=== PATIENT | female | born 1955 | race Caucasian/White ===

== ENCOUNTER 2016-07-21 21:32 | Emergency (ER) | payer MEDICAID ==
[2016-07-21 21:39] VITALS: RESP 18; TEMP 98.4
--- NOTE | 2016-07-21 23:26 | EDPHY ---
H & P Stated Complaint: BILAT LEG PAIN AND L SHOULDER, NECK PAIN SHOPPING CART GOT STUCK IN A GR Time Seen by Provider: 07/21/16 22:16 HPI/ROS: HPI The patient presents with right jesus pain after an injury. She was walking in the parking lot of a grocery store and her cart got stuck in a great in the sidewalk and she ran into it she thinks. The cart hit her right jesus and she has had progressive achy and throbbing pain which is moderate in severity. She is able to walk without difficulty. She denies any weakness. She has left shoulder aching as well.. REVIEW OF SYSTEMS Constitutional: No fever, no chills. Eyes: No discharge. ENT: No sore throat. Cardiovascular: No chest pain, no palpitations. Respiratory: No cough, no shortness of breath. Gastrointestinal: No abdominal pain, no vomiting. Genitourinary: No hematuria. Musculoskeletal: No back pain. Skin: No rashes. Neurological: No headache. PMHx: Recent traumatic brain injury, hypothyroid, von Willebrand's disease Soc Hx: Housed in [facility] PHYSICAL General Appearance: Alert, no distress Eyes: Pupils equal and round no pallor or injection ENT, Mouth: Mucous membranes moist Respiratory: There are no retractions, lungs are clear to auscultation Cardiovascular: Regular rate and rhythm Gastrointestinal: Abdomen is soft and non-tender, no masses, bowel sounds normal Neurological: A&O, moves all extremities Skin: Warm and dry, no rashes Musculoskeletal: Neck is supple non tender Extremities: Ecchymoses of right anterior leg, full range of motion of knee on the same side, sensation intact to light touch throughout, 2+ DP pulses Psychiatric: Patient is oriented X 3, there is no agitation Source: Patient Exam Limitations: No limitations - Personal History Current Tetanus/Diphtheria Vaccine: Unsure Current Tetanus Diphtheria and Acellular Pertussis (TDAP): Unsure - Medical/Surgical History Hx Asthma: No Hx Chronic Respiratory Disease: No Hx Diabetes: No Hx Cardiac Disease: No Hx Renal Disease: No Hx Cirrhosis: No Hx Alcoholism: No Hx HIV/AIDS: No Hx Splenectomy or Spleen Trauma: No Other PMH: hypothyroid, vonwildabrands, TBI - Social History Smoking Status: Never smoked Constitutional: Initial Vital Signs Temperature (C) 36.9 C 07/21/16 21:34 Heart Rate 91 07/21/16 21:34 Respiratory Rate 18 07/21/16 21:34 Blood Pressure 169/95 H 07/21/16 21:34 O2 Sat (%) 93 07/21/16 21:34 O2 Delivery Mode Room Air Allergies/Adverse Reactions: Penicillins Allergy (Intermediate, Verified 07/21/16 21:39) Edema of Extremities Sulfa (Sulfonamide Antibiotics) Allergy (Intermediate, Verified 07/21/16 21:39) Itching Home Medications: Medication Instructions Recorded Albuterol [Proventil Inhaler HFA 1 - 2 puffs IH Q4H 07/21/16 (*)] Olopatadine HCl [Pataday] 2.5 ml OP 07/21/16 Thyroid [[place] Thyroid 60 MG (*)] 60 mg PO DAILY10 07/21/16 Medical Decision Making - Diagnostics Imaging Results: Imaging Impressions Tibia/Fibula X-Ray 07/21/16 22:32 Impression: Negative for fracture. Imaging: I viewed and interpreted images myself Differential Diagnosis: This is a 60-year-old female with history of TBI who presents after an injury in the grocery store parking lot, hitting herself with her shopping cart. Her main injury is right jesus pain and she has ecchymoses in the region. She has good range of motion is weight-bearing. She does have a history of von Willebrand's disease. X-ray was performed and was unremarkable. I have recommended rest, ice, elevation for her. She will be discharged from the emergency room. Departure - Departure Disposition: Home, Routine, Self-Care Clinical Impression: Fall involving shopping cart as cause of accidental injury, Contusion of leg, right Condition: Good Instructions: Contusion in Adults (ED) Additional Instructions: Please make sure to use plenty of ice on your leg. You can elevate it as well to help with pain. You can take Tylenol to help with pain. Referrals: [facility] [Other] - As per Instructions
[2016-07-21 23:51] VITALS: BP 150/76; PULSE 81; O2SAT 96
== END 2016-07-21 23:50 | disposition home or self-care (01) ==
DX: S80.11XA Contusion of right lower leg, initial encounter (principal); W18.09XA Striking against other object with subsequent fall, initial encounter; Y92.481 Parking lot as the place of occurrence of the external cause; Y99.8 Other external cause status; Y93.01 Activity, walking, marching and hiking

== ENCOUNTER 2016-07-29 13:53 | Emergency (ER) | payer MEDICAID ==
--- NOTE | 2016-07-29 15:04 | EDPHY ---
H & P Stated Complaint: RIGHT LEG PAIN AND BRUISING Time Seen by Provider: 07/29/16 14:50 HPI/ROS: CHIEF COMPLAINT: right leg pain and bruising HISTORY OF PRESENT ILLNESS: The patient is a 60-year-old female with a history of traumatic brain injury who comes to the emergency department complaining of pain around a bruise centered in her right jesus. She was seen here just over a week ago after hitting her leg on a shopping cart. She has a history of von Willebrand's disease. She had x-rays performed at that time which were negative. She has moderate bruising and swelling in the region. She saw her primary at [facility] 4 days ago and was complaining of some paresthesias distally to the bruise. 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 Her primary felt that some of the swelling might be exacerbating her neuropathy. She states that those symptoms have continued until today and that she was worried about a DVT. She came here to be evaluated for DVT. She states that she also hit her left leg on the shopping cart and that her bones now crack on both sides when she moves them. She also states that she hurt her left trapezius muscle when she ran into the shopping cart. She is not very concerned about this however and states that it seems to be healing slowly. She does not have any paresthesias numbness or weakness. No bowel or bladder abnormalities. No fevers. REVIEW OF SYSTEMS: Constitutional: denies: chills, fever, recent illness, recent injury EENTM: denies: blurred vision, double vision, nose congestion Respiratory: denies: cough, shortness of breath Cardiac: denies: chest pain, irregular heart rate, lightheadedness, palpitations Gastrointestinal/Abdominal: denies: abdominal pain, diarrhea, nausea, vomiting, blood streaked stools Genitourinary: denies: dysuria, frequency, hematuria, pain Musculoskeletal: See HPI Skin: denies: lesions, rash, jaundice, bruising Neurological: denies: headache, numbness, paresthesia, tingling, dizziness, weakness Hematologic/Lymphatic: denies: blood clots, easy bleeding, easy bruising Immunologic/allergic: denies: HIV/AIDS, transplant EXAM: GENERAL: Well-appearing, well-nourished and in no acute distress. HEAD: Atraumatic, normocephalic. EYES: Pupils equal round and reactive to light, extraocular movements intact, sclera anicteric, conjunctiva are normal. ENT: TMs normal, nares patent, oropharynx clear without exudates. Moist mucous membranes. NECK: Normal range of motion, supple without lymphadenopathy or JVD. LUNGS: Breath sounds clear to auscultation bilaterally and equal. No wheezes rales or rhonchi. HEART: Regular rate and rhythm without murmurs, rubs or gallops. ABDOMEN: Soft, nontender, normoactive bowel sounds. No guarding, no rebound. No masses appreciated. BACK: No CVA tenderness, no spinal tenderness, step-offs or deformities EXTREMITIES: Contusion to right middle jesus. No significant swelling. Normal range of motion and strength. Normal ambulation. NEUROLOGICAL: Cranial nerves II through XII grossly intact. Normal speech, normal gait. 5/5 strength, normal movement in all extremities, normal sensation , normal reflexes PSYCH: Normal mood, normal affect. SKIN: Warm, dry, normal turgor, no visible rashes or lesions. Source: Patient Exam Limitations: No limitations - Personal History Current Tetanus/Diphtheria Vaccine: Yes Current Tetanus Diphtheria and Acellular Pertussis (TDAP): Yes - Medical/Surgical History Hx Asthma: No Hx Chronic Respiratory Disease: No Hx Diabetes: No Hx Cardiac Disease: No Hx Renal Disease: No Hx Cirrhosis: No Hx Alcoholism: No Hx HIV/AIDS: No Hx Splenectomy or Spleen Trauma: No Other PMH: PMH:hypothyroid, vonwildabrands, TBI, ptsd. PSH:overian cyst removan , dental - Family History Significant Family History: No pertinent family hx - Social History Smoking Status: Never smoked Alcohol Use: Sober Drug Use: None Constitutional: Initial Vital Signs Temperature (C) 36.5 C 07/29/16 14:10 Heart Rate 84 07/29/16 14:10 Respiratory Rate 16 07/29/16 14:10 Blood Pressure 125/78 H 07/29/16 14:10 O2 Sat (%) 97 07/29/16 14:10 O2 Delivery Mode Room Air Allergies/Adverse Reactions: Penicillins Allergy (Intermediate, Verified 07/21/16 21:39) Edema of Extremities Sulfa (Sulfonamide Antibiotics) Allergy (Intermediate, Verified 07/21/16 21:39) Itching Home Medications: Medication Instructions Recorded Albuterol [Proventil Inhaler HFA 1 - 2 puffs IH Q4H 07/21/16 (*)] Olopatadine HCl [Pataday] 2.5 ml OP 07/21/16 Thyroid [[place] Thyroid 60 MG (*)] 60 mg PO DAILY10 07/21/16 Medical Decision Making - Diagnostics Imaging Results: Imaging Impressions Extremity Venous Study 07/29/16 15:01 Impression: No evidence of deep vein thrombosis in the right lower extremity. Results called and discussed with SIXTO HANKINS M.D. on 07/29/2016 at 16:14 Imaging: Discussed imaging studies w/ call person Radiologist ED Course/Re-evaluation: The patient's ultrasound results are reassuring. She is eager to go home. She declines further workup testing. She will follow up with her primary care physician Differential Diagnosis: Partial list of the Differential diagnosis considered include but were not limited to; contusion, DVT, peripheral neuropathy and although unlikely based on the history and physical exam, I also considered sciatica, radiculopathy infection. I discussed these differential diagnoses and the plan with the patient as well as the usual and expected course. The patient understands that the diagnosis is provisional and that in medicine we are not always correct and that further workup is often warranted. Usual and customary warnings were given. All of the patient's questions were answered. The patient was instructed to return to the emergency department should the symptoms at all worsen or return, otherwise to followup with the physician as we discussed. Departure - Departure Disposition: Home, Routine, Self-Care Clinical Impression: Hematoma Condition: Fair Instructions: Hematoma (ED) Additional Instructions: follow up with PCP as needed. Referrals: NAME,UNKNOWN [Other] - As per Instructions
[2016-07-29 18:02] VITALS: BP 125/83; PULSE 79; RESP 18; TEMP 98.4; O2SAT 96
== END 2016-07-29 18:11 | disposition home or self-care (01) ==
DX: S80.11XA Contusion of right lower leg, initial encounter (principal); W22.8XXA Striking against or struck by other objects, initial encounter

== ENCOUNTER 2017-10-25 00:54 | Emergency (ER) | payer MEDICAID ==
[2017-10-25 01:01] VITALS: BP 184/101
[2017-10-25] MEDS ORDERED: LIDOCAINE 4%/MENTHOL 1% PATCH TD ONE (01:57)
[2017-10-25] MEDS ORDERED: ACYCLOVIR 400 MG PREPACK#4 BTL TAKEHOME ONE (01:57)
[2017-10-25] MEDS ORDERED: ACYCLOVIR 400 MG TAB PO ONE (01:57)
--- NOTE | 2017-10-25 01:58 | EDPHY ---
H & P Stated Complaint: Rash x 1wk, generalized bdy aches, anxious Time Seen by Provider: 10/25/17 01:27 HPI/ROS: HPI The patient presents with rash and burning sensation of her left upper abdomen. The patient is concerned that there are bugs in her house after sustaining multiple bug bites over the last 1 week throughout her arms and legs. She called an storage battery inspector who came to her house and found that she had spiders but no signs of bed bugs. She has been very vigilant about these bug bites. Then over the last several days she has developed a burning sensation of her left abdomen which radiates toward her back and has noticed that she has several lesions there that looked like red bumps. She has not any fevers or chills, nausea or vomiting.. REVIEW OF SYSTEMS Constitutional: No fever, no chills. Eyes: No discharge. ENT: No sore throat. Cardiovascular: No chest pain, no palpitations. Respiratory: No cough, no shortness of breath. Gastrointestinal: No abdominal pain, no vomiting. Genitourinary: No hematuria. Musculoskeletal: No back pain. Skin: See HPI Neurological: No headache. PMHx: Hypothyroidism, von Willebrand's disease, fibromyalgia, history of shingles Soc Hx: Housed PHYSICAL General Appearance: Alert, no distress Eyes: Pupils equal and round no pallor or injection ENT, Mouth: Mucous membranes moist Respiratory: There are no retractions, lungs are clear to auscultation Cardiovascular: Regular rate and rhythm Gastrointestinal: Abdomen is soft and non-tender, no masses, bowel sounds normal Neurological: A&O, moves all extremities Skin: Warm and dry, several erythematous papules throughout her abdomen and arms Musculoskeletal: Neck is supple non tender Extremities: symmetrical, full range of motion Psychiatric: Patient is oriented X 3, there is no agitation Source: Patient Exam Limitations: No limitations - Personal History Current Tetanus Diphtheria and Acellular Pertussis (TDAP): No - Medical/Surgical History Hx Asthma: No Hx Chronic Respiratory Disease: No Hx Diabetes: No Hx Cardiac Disease: No Hx Renal Disease: No Hx Cirrhosis: No Hx Alcoholism: No Hx HIV/AIDS: No Hx Splenectomy or Spleen Trauma: No Other PMH: PMH:hypothyroid, vonwildabrands, TBI, ptsd. PSH:overian cyst removan , dental - Social History Smoking Status: Never smoked Constitutional: Initial Vital Signs Temperature (C) 36.5 C 10/25/17 00:56 Heart Rate 83 10/25/17 00:56 Respiratory Rate 18 10/25/17 00:56 Blood Pressure 184/101 H 10/25/17 00:56 O2 Sat (%) 97 10/25/17 00:56 O2 Delivery Mode Room Air Allergies/Adverse Reactions: Penicillins Allergy (Intermediate, Verified 10/25/17 00:55) Edema of Extremities Sulfa (Sulfonamide Antibiotics) Allergy (Intermediate, Verified 10/25/17 00:55) Itching Home Medications: Medication Instructions Recorded Albuterol [Proventil Inhaler HFA 1 - 2 puffs IH Q4H 07/21/16 (*)] Olopatadine HCl [Pataday] 2.5 ml OP 07/21/16 Thyroid [[place] Thyroid 60 MG (*)] 60 mg PO DAILY10 07/21/16 Acyclovir 800 mg PO 5XD #35 tab 10/25/17 Medical Decision Making Differential Diagnosis: 62-year-old female presents with multiple bug bites over the last 1 week, now with left-sided burning sensation throughout her abdomen and back. On exam, well-appearing, does have scattered erythematous papules throughout her torso and arms which are quite mild. I wonder if this burning sensation is early varicella zoster. Given little downside to treating with azithromycin I will start her on this here. I will also try a lidocaine patch for her symptoms. I do not suspect scabies or bedbugs. She will be discharged from the emergency department in good condition. She is happy with this plan and will [facility] if she is worse in any way - Data Points Medications Given: Discontinued Medications Acyclovir (Acyclovir) 800 mg PO EDNOW ONE Stop: 10/25/17 01:58 Last Admin: 10/25/17 02:52 Dose: 800 mg Acyclovir (Zovirax 400 Mg Prepack #4) 1 btl TAKEHOME EDNOW ONE Stop: 10/25/17 01:58 Last Admin: 10/25/17 02:52 Dose: 1 btl Miscellaneous Medication (Icy Hot Lidocaine/Menthol 4%/1% Patch) 1 patch TD EDNOW ONE Stop: 10/25/17 01:58 Last Admin: 10/25/17 02:53 Dose: 1 patch Departure - Departure Disposition: Home, Routine, Self-Care Clinical Impression: Rash Condition: Good Instructions: Shingles (ED) Additional Instructions: I recommend that you take the acyclovir for possible shingles. You [facility] 2 days. Referrals: [facility],. [Clinic] - As per Instructions Prescriptions: Acyclovir 800 mg PO 5XD #35 tab
[2017-10-25] MEDS ORDERED: PATCH REMOVAL 1 EA PATCH TD SCH (21:00)
== END 2017-10-25 02:59 | disposition home or self-care (01) ==
DX: R21 Rash and other nonspecific skin eruption (principal); R20.8 Other disturbances of skin sensation; Z86.19 Personal history of other infectious and parasitic diseases

== ENCOUNTER 2018-05-08 10:35 | Emergency (ER) | payer MEDICAID ==
[2018-05-08 10:43] VITALS: BP 138/80
--- NOTE | 2018-05-09 07:35 | EDPHY ---
H & P Stated Complaint: dx flu continued resp prob Time Seen by Provider: 05/08/18 10:50 HPI/ROS: CHIEF COMPLAINT: Diarrhea, vomiting, fever, congestion HISTORY OF PRESENT ILLNESS: The patient is a diabetic female presents the emergency department with fever, cough, vomiting and diarrhea. The patient's symptoms have increased over the past 2 days. The patient denies any recent antibiotic use. She denies associated dysuria. She reports that her blood sugars have been well controlled. The patient reports that her symptoms are moderate in nature. She has associated fatigue and weakness. She denies any focal numbness or weakness. She denies any bowel or bladder dysfunction. She denies rash or arthralgias. REVIEW OF SYSTEMS: A comprehensive 10 point review of systems is otherwise negative aside from elements mentioned in the history of present illness. Source: Patient Exam Limitations: No limitations - Personal History Current Tetanus Diphtheria and Acellular Pertussis (TDAP): No - Medical/Surgical History Hx Asthma: No Hx Chronic Respiratory Disease: No Hx Diabetes: No Hx Cardiac Disease: No Hx Renal Disease: No Hx Cirrhosis: No Hx Alcoholism: No Hx HIV/AIDS: No Hx Splenectomy or Spleen Trauma: No Other PMH: PMH:hypothyroid, vonwildabrands, TBI, ptsd. PSH:overian cyst removan , dental - Social History Smoking Status: Never smoked - Physical Exam Exam: General Appearance: Elderly female, appears fatigued, uncomfortable Eyes: Pupils equal and round no pallor or injection ENT, Mouth: Dry mucous membranes Respiratory: Rhonchorous breath sounds Cardiovascular: Regular rate and rhythm Gastrointestinal: Abdomen is soft and nontender, no masses, bowel sounds normal Neurological: 5/5 strength noted all 4 extremities Skin: Warm and dry, no rashes Musculoskeletal: Neck is supple nontender Extremities: symmetrical, full range of motion Psychiatric: Patient is oriented X 3, there is no agitation Constitutional: Initial Vital Signs Temperature (C) 37.3 C 05/08/18 10:39 Heart Rate 97 05/08/18 10:39 Respiratory Rate 17 05/08/18 10:39 Blood Pressure 138/80 H 05/08/18 10:39 O2 Sat (%) 94 05/08/18 10:39 O2 Delivery Mode Room Air Allergies/Adverse Reactions: Penicillins Allergy (Intermediate, Verified 05/08/18 10:37) Edema of Extremities Sulfa (Sulfonamide Antibiotics) Allergy (Intermediate, Verified 05/08/18 10:37) Itching ciprofloxacin [From Cipro] Allergy (Verified 05/08/18 10:38) Home Medications: Medication Instructions Recorded Albuterol [Proventil Inhaler HFA 1 - 2 puffs IH Q4H 07/21/16 (*)] Olopatadine HCl [Pataday] 2.5 ml OP 07/21/16 Thyroid [[place] Thyroid 60 MG (*)] 60 mg PO DAILY10 07/21/16 Acyclovir 800 mg PO 5XD #35 tab 10/25/17 Advair 100/50 (*) 05/08/18 Tamiflu 05/08/18 Medical Decision Making - Diagnostics Imaging Results: Chest x-ray PA lateral: Images reviewed by myself, atelectasis noted, negative for focal infiltrate per my interpretation. ED Course/Re-evaluation: Database reviewed in the emergency department: Chest x-ray: Negative for focal infiltrate Influenza assay: Positive for flu A Metabolic panel: Normal ED course: Patient had an IV established. She received IV Zofran, L of normal saline and pain medications. Patient is slightly tachycardic and having active nausea, vomiting and diarrhea. She is dehydrated. The patient will require admission to the hospital in the setting of her acute influenza infection. She has no evidence of diabetic ketoacidosis. Consultation is made with the hospitalist service. The patient will be admitted this evening by Dr. Galaviz Differential Diagnosis: Differential diagnosis considered includes asthma, bronchitis, pneumonia, gastroenteritis, influenza, renal failure Departure - Departure Disposition: [facility] Inpatient Acute Clinical Impression: Acute bronchitis, Influenza, Dehydration Condition: Good Referrals: Megan Rios NP [Primary Care Provider] - As per Instructions
== END 2018-05-08 12:30 | disposition still patient (30) ==
DX: J10.1 Influenza due to other identified influenza virus with other respiratory manifestations (principal); J20.9 Acute bronchitis, unspecified; R11.2 Nausea with vomiting, unspecified; R19.7 Diarrhea, unspecified; E86.0 Dehydration; E11.9 Type 2 diabetes mellitus without complications; Z87.820 Personal history of traumatic brain injury; Z88.2 Allergy status to sulfonamides; Z88.0 Allergy status to penicillin

== ENCOUNTER 2018-05-16 18:43 | Emergency (ER) | payer MEDICAID ==
[2018-05-16] MEDS ORDERED: NS 1,000 ML IV ONE (19:04)
[2018-05-16] MEDS ORDERED: IPRATROPIUM/ALBUTEROL 3 ML DEYVIAL IH ONE (19:05)
--- NOTE | 2018-05-16 19:15 | EDPHY ---
H & P Stated Complaint: Flu, Cough, SOB Time Seen by Provider: 05/16/18 19:05 HPI/ROS: HPI CHIEF COMPLAINT: Shortness of breath, wheezing, worsening cough. HISTORY OF PRESENT ILLNESS: This is a 62-year-old female, she presents to the emergency room with cough, shortness of breath and wheezing. Patient states she has been sick for 2 weeks. She states she has had worsening cough, shortness of breath and wheezing. She denies any chest pain. She is concerned about pneumonia. Denies fever. She states she has a bronchitic cough very vigorous. No hemoptysis. Denies chest pain or chest tightness. Complains of intermittent wheezing. Has been using her albuterol inhaler, additionally completed a course of steroids recently, and is on doxycycline currently. Past Medical History: History of traumatic brain injury, anxiety Past Surgical History: Denies recent surgical history Social History: Denies drugs alcohol tobacco. Family History: Noncontributory ROS REVIEW OF SYSTEMS: 10 Systems were reviewed and negative with the exception of the elements mentioned in the history of present illness. Exam Constitutional triage nursing summary reviewed, vital signs reviewed, awake/ alert. Eyes normal conjunctivae and sclera, EOMI, PERRLA. HENT normal inspection, atraumatic, moist mucus membranes, no epistaxis, neck supple/ no meningismus, no raccoon eyes. Respiratory clear to auscultation bilaterally, normal breath sounds, no respiratory distress, no wheezing. Cardiovascular rate normal, regular rhythm, no murmur, no edema, distal pulses normal. Gastrointestinal soft, non-tender, no rebound, no guarding, normal bowel sounds, no distension, no pulsatile mass. Genitourinary no CVA tenderness. Musculoskeletal no midline vertebral tenderness, full range of motion, no calf swelling, no tenderness of extremities, no meningismus, good pulses, neurovascularly intact. Skin pink, warm, & dry, no rash, skin atraumatic. Neurologic awake, alert and oriented x 3, AAOx3, moves all 4 extremities equally, motor intact, sensory intact, CN II-XII intact, normal cerebellar, normal vision, normal speech. Psychiatric normal mood/affect. Heme/Lymph/Immune no lymphadenopathy. Differential Diagnosis: Includes but is not limited to in a particular order pneumonia, bronchitis, viral syndrome, viral pneumonia, bacterial pneumonia, reactive airway disease, ACS, PE Medical Decision Making: Plan for this patient IV establishment IV fluid bolus , DuoNeb breathing treatment, basic lab work, check troponin, D-dimer EKG chest x-ray re-evaluate. Re-evaluation: EKG interpretation by me on record in [facility] system. Impression time of EKG 1927, sinus rhythm rate of 75, nonspecific T-wave abnormality V1 V2. Otherwise no acute ischemia. Troponin 0.00 Negative D-dimer. Patient re-evaluated at 9:27 p.m.. The patient continues to do very well. Good air movement bilaterally her coughing has resolved. She received a DuoNeb breathing treatment and feels much better. IV fluids. Chest x-ray shows no evidence of pneumonia The patient is already on doxycycline, she just finished a steroid course. She has an albuterol inhaler. I do recommend she continues with doxycycline complete the course of antibiotics. Additionally I do recommend she has inhaler 2 puffs as needed every 4-6 hours. We discussed about return precautions return emergency room if worsening shortness of breath, or not doing well 2153: Patient re-evaluated this time she is resting comfortably. Good air movement bilaterally. Her current vitals heart rate 76, pulse ox 96% on room air, blood pressure 117/99. She would like to go home. She ambulated well throughout the emergency without any difficulty. Albuterol take-home inhaler. Continue her doxycycline She should follow up with her primary care doctor tomorrow She understands return emergency room if she has any worsening symptoms questions or concerns. Source: Patient - Personal History Current Tetanus Diphtheria and Acellular Pertussis (TDAP): Yes - Medical/Surgical History Hx Asthma: No Hx Chronic Respiratory Disease: No Hx Diabetes: No Hx Cardiac Disease: No Hx Renal Disease: No Hx Cirrhosis: No Hx Alcoholism: No Hx HIV/AIDS: No Hx Splenectomy or Spleen Trauma: No Other PMH: PMH:hypothyroid, vonwildabrands, TBI, ptsd. PSH:overian cyst removan , dental - Social History Smoking Status: Never smoked Constitutional: Initial Vital Signs Temperature (C) 36.6 C 05/16/18 19:05 Heart Rate 89 05/16/18 19:05 Respiratory Rate 18 05/16/18 19:05 Blood Pressure 172/83 H 05/16/18 19:05 O2 Sat (%) 95 05/16/18 19:05 O2 Delivery Mode Room Air Allergies/Adverse Reactions: Penicillins Allergy (Intermediate, Verified 05/16/18 19:05) Edema of Extremities Sulfa (Sulfonamide Antibiotics) Allergy (Intermediate, Verified 05/16/18 19:05) Itching ciprofloxacin [From Cipro] Allergy (Verified 05/16/18 19:05) Home Medications: Medication Instructions Recorded Albuterol [Proventil Inhaler HFA 1 - 2 puffs IH Q4H PRN 07/21/16 (*)] Olopatadine HCl [Pataday] 1 drop OP DAILY PRN 07/21/16 Thyroid [[place] Thyroid 60 MG (*)] 60 mg PO DAILY10 07/21/16 Doxycycline Hyclate [Vibramycin 100 mg PO BID 05/16/18 100 MG (*)] Guaifen/Dextromethorphan/PE 10 ml PO Q6H PRN 05/16/18 [Robitussin Cough-Cold Cf Liq] diphenhydrAMINE [Benadryl 25 MG 25 mg PO Q4 PRN 05/16/18 (*)] Medical Decision Making - Diagnostics Imaging Results: Imaging Impressions Chest X-Ray 05/16/18 19:04 Impression: No acute cardiopulmonary process. - Data Points Laboratory Results: Laboratory Results 05/16/18 19:10 05/16/18 19:30 05/16/18 05/16/18 05/16/18 21:00 19:30 19:30 WBC RBC Hgb Hct MCV MCH MCHC RDW Plt Count MPV Neut % (Auto) Lymph % (Auto) Swisher % (Auto) Eos % (Auto) Baso % (Auto) Nucleat RBC Rel Count Absolute Neuts (auto) Absolute Lymphs (auto) Absolute Monos (auto) Absolute Eos (auto) Absolute Basos (auto) Absolute Nucleated RBC Immature Gran % Immature Gran # D-Dimer 0.41 ug/mLFEU ug/mLFEU (0.00-0.50) Sodium 137 mEq/L mEq/L (135-145) Potassium 4.3 mEq/L mEq/L (3.5-5.2) Chloride 101 mEq/L mEq/L (97-110) Carbon Dioxide 27 mEq/l mEq/l (22-31) Anion Gap 9 mEq/L mEq/L (6-14) BUN 18 mg/dL mg/dL (7-23) Creatinine 0.7 mg/dL mg/dL (0.6-1.0) Estimated GFR > 60 Glucose 105 mg/dL H mg/dL (70-100) Calcium 9.4 mg/dL mg/dL (8.5-10.4) Magnesium 2.3 mg/dL mg/dL (1.6-2.3) Total Bilirubin 0.6 mg/dL mg/dL (0.1-1.4) Conjugated Bilirubin 0.6 mg/dL H mg/dL (0.0-0.5) Unconjugated Bilirubin 0.0 mg/dL mg/dL (0.0-1.1) AST 35 IU/L IU/L (14-46) ALT 40 IU/L IU/L (9-52) Alkaline Phosphatase 65 IU/L IU/L (38-126) Creatine Kinase 112 IU/L IU/L (0-156) CK-MB (CK-2) Fraction 1.57 ng/mL ng/mL (0.00-4.55) POC Troponin I NT-Pro-B Natriuret Pep 101 pg/mL pg/mL (0-125) Total Protein 7.2 g/dL g/dL (6.3-8.2) Albumin 4.1 g/dL g/dL (3.5-5.0) Specimen Hemolysis 141 Nasal Influenza A PCR NEGATIVE FOR FLU A (NEGATIVE) Nasal Influenza B PCR NEGATIVE FOR FLU B (NEGATIVE) 05/16/18 05/16/18 05/16/18 19:14 19:10 19:10 WBC 8.34 10^3/uL 10^3/uL (3.80-9.50) RBC 4.31 10^6/uL 10^6/uL (4.18-5.33) Hgb 13.3 g/dL g/dL (12.6-16.3) Hct 38.3 % % (38.0-47.0) MCV 88.9 fL fL (81.5-99.8) MCH 30.9 pg pg (27.9-34.1) MCHC 34.7 g/dL g/dL (32.4-36.7) RDW 13.4 % % (11.5-15.2) Plt Count 355 10^3/uL 10^3/uL (150-400) MPV 9.6 fL fL (8.7-11.7) Neut % (Auto) 64.2 % % (39.3-74.2) Lymph % (Auto) 28.9 % % (15.0-45.0) Swisher % (Auto) 5.8 % % (4.5-13.0) Eos % (Auto) 0.2 % L % (0.6-7.6) Baso % (Auto) 0.4 % % (0.3-1.7) Nucleat RBC Rel Count 0.0 % % (0.0-0.2) Absolute Neuts (auto) 5.36 10^3/uL 10^3/uL (1.70-6.50) Absolute Lymphs (auto) 2.41 10^3/uL 10^3/uL (1.00-3.00) Absolute Monos (auto) 0.48 10^3/uL 10^3/uL (0.30-0.80) Absolute Eos (auto) 0.02 10^3/uL L 10^3/uL (0.03-0.40) Absolute Basos (auto) 0.03 10^3/uL 10^3/uL (0.02-0.10) Absolute Nucleated RBC 0.00 10^3/uL 10^3/uL (0-0.01) Immature Gran % 0.5 % % (0.0-1.1) Immature Gran # 0.04 10^3/uL 10^3/uL (0.00-0.10) D-Dimer REJ Sodium Potassium Chloride Carbon Dioxide Anion Gap BUN Creatinine Estimated GFR Glucose Calcium Magnesium Total Bilirubin Conjugated Bilirubin Unconjugated Bilirubin AST ALT Alkaline Phosphatase Creatine Kinase CK-MB (CK-2) Fraction POC Troponin I 0.00 ng/mL ng/mL (0.00-0.08) NT-Pro-B Natriuret Pep Total Protein Albumin Specimen Hemolysis Nasal Influenza A PCR Nasal Influenza B PCR Medications Given: Discontinued Medications Albuterol/Ipratropium (Duoneb) 3 ml IH EDNOW ONE Stop: 05/16/18 19:06 Last Admin: 05/16/18 19:22 Dose: 3 ml Sodium Chloride (Ns) 1,000 mls @ 0 mls/hr IV EDNOW ONE; Wide Open PRN Reason: Protocol Stop: 05/16/18 19:05 Last Admin: 05/16/18 19:22 Dose: 1,000 mls Point of Care Test Results: Chemistry 05/16/18 19:14 POC Troponin I 0.00 ng/mL ng/mL (0.00-0.08) Departure - Departure Disposition: Home, Routine, Self-Care Clinical Impression: Bronchitis Condition: Good Instructions: Albuterol (By breathing), Acute Bronchitis (ED) Additional Instructions: 1. Follow up with your primary care doctor tomorrow 2. Return to the emergency room if you have worsening symptoms shortness of breath, trouble breathing, not doing well. 3. Albuterol inhaler 2 puffs every 4 hr as needed. 4. Return if worse. Referrals: Megan Rios NP [Primary Care Provider] - As per Instructions
[2018-05-16 19:20] LABS: PLATELET COUNT 355 10^3/uL (150-400)
[2018-05-16 20:42] LABS: CREATINE KINASE 112 IU/L (0-156)
[2018-05-16] MEDS ORDERED: ALBUTEROL INH PREPACK MDI TAKEHOME ONE (21:30)
[2018-05-16 22:03] VITALS: BP 128/65
--- NOTE | 2018-05-18 07:55 | CPEKG ---
Test Reason : OPEN Blood Pressure : / mmHG Vent. Rate : 075 BPM Atrial Rate : 075 BPM P-R Int : 153 ms QRS Dur : 088 ms QT Int : 385 ms P-R-T Axes : 040 044 023 degrees QTc Int : 430 ms Sinus rhythm Low voltage, precordial leads Borderline T abnormalities, anterior leads Confirmed by Edd Box ([id number]) on 05/18/2018 7:55:09 AM Referred By: Edd Box Confirmed By:Edd Box
== END 2018-05-16 22:03 | disposition home or self-care (01) ==
LOC: EDUNIT#
DX: J40 Bronchitis, not specified as acute or chronic (principal); E86.9 Volume depletion, unspecified
CPT/HCPCS: 84484-ER

== ENCOUNTER 2018-05-23 21:22 | Emergency (ER) | payer MEDICAID ==
--- NOTE | 2018-05-23 22:01 | EDPHY ---
H & P Stated Complaint: cough Time Seen by Provider: 05/23/18 22:01 - Personal History Current Tetanus Diphtheria and Acellular Pertussis (TDAP): No - Medical/Surgical History Hx Asthma: No Hx Chronic Respiratory Disease: No Hx Diabetes: No Hx Cardiac Disease: No Hx Renal Disease: No Hx Cirrhosis: No Hx Alcoholism: No Hx HIV/AIDS: No Hx Splenectomy or Spleen Trauma: No Other PMH: PMH:hypothyroid, vonwildabrands, TBI, ptsd. PSH:overian cyst removan , dental - Social History Smoking Status: Never smoked Constitutional: Initial Vital Signs Temperature (C) 36.6 C 05/23/18 21:31 Heart Rate 83 05/23/18 21:31 Respiratory Rate 18 05/23/18 21:31 Blood Pressure 174/91 H 05/23/18 21:31 O2 Sat (%) 94 05/23/18 21:31 O2 Delivery Mode Room Air Allergies/Adverse Reactions: Penicillins Allergy (Intermediate, Verified 05/23/18 21:29) Edema of Extremities Sulfa (Sulfonamide Antibiotics) Allergy (Intermediate, Verified 05/23/18 21:29) Itching ciprofloxacin [From Cipro] Allergy (Verified 05/23/18 21:29) erythromycin base Allergy (Verified 05/23/18 21:29) Home Medications: Medication Instructions Recorded Albuterol [Proventil Inhaler HFA 1 - 2 puffs IH Q4H PRN 07/21/16 (*)] Olopatadine HCl [Pataday] 1 drop OP DAILY PRN 07/21/16 Thyroid [[place] Thyroid 60 MG (*)] 60 mg PO DAILY10 07/21/16 HYDROcodone/HOMATROPINE HYCODA 1 tsp PO Q4-6PRN PRN #120 ml 05/23/18 [Hycodan Syrup (RX)] Tessalon Pearles 05/23/18 Medical Decision Making ED Course/Re-evaluation: CHIEF COMPLAINT: Cough and body aches HISTORY OF PRESENT ILLNESS: The patient is a 62 y/o female with a history of a TBI and costochondritis complaining of a cough and body aches for 3 weeks. Around 2 weeks ago the patient was diagnosed with the flu and prescribed Tamiflu. Several days later she wasn't feeling well, presented to the ER, and had a normal chest x-ray. Several jain after being in the ER she went to an urgent care and diagnosed with "walking pneumonia and bronchitis". She was given 2 nebulizers and cortisone as well as prescription for Prednisone and Doxycycline. After taking those medications she still did not feel better and presented to the ER again where she had a normal chest x-ray and was prescribed an albuterol inhaler. She returned to the ER today as she continues to not feel well, has body aches, a cough, and rib pain from the cough. No fever, headache, lightheadedness, chest pain, heart palpitations, shortness of breath, abdominal pain, urinary or bowel complaints, numbness, paresthesias. REVIEW OF SYSTEMS: A comprehensive 10 system review of systems is otherwise negative aside from elements mentioned in the history of present illness and medical decision making. PHYSICAL EXAM: HR, BP, O2 Sat, RR. Temp noted General Appearance: Alert, well hydrated, appropriate, and non-toxic appearing. Head: Atraumatic without scalp tenderness or obvious injury Eyes: Pupils equal, round, reactive to light and accommodation, EOMI, no trauma , no injection. Ears: Clear bilaterally, no perforation, normal landmarks Nose: Atraumatic, no rhinorrhea, clear. Throat: There is no erythema or exudates, no lesions, normal tonsils, mucus membranes moist. Neck: Supple, 2+ carotid upstroke, nontender, no lymphadenopathy. Respiratory: No retractions, no distress, no wheezes, and no accessory muscle use. Lungs are clear to auscultation bilaterally. Cardiovascular: Regular rate and rhythm, no murmurs, rubs, or gallops. Bilateral carotid, radial, dorsalis pedis, and posterior tibial pulses intact. Good capillary refill all extremities. Gastrointestinal: Abdomen is soft, nontender, non-distended, no masses, no rebound, no guarding, no peritoneal signs. Musculoskeletal: Normal active ROM of all extremities, atraumatic. Neurological: Alert, appropriate, and interactive. The patient has normal DTRs and non-focal cranial nerves, motor, sensory, and cerebellar exam. Skin: No rashes, good turgor, no nodules on palpation. Past medical history: Costochondritis, hypothyroid, Von Willebrand, TBI, PTSD Past surgical history: Ovarian cyst removal, dental surgeries Family history: Denies Social history: Lives in [place], DIAGNOSTICS/PROCEDURES/CRITICAL CARE TIME: Not indicated DIFFERENTIAL DIAGNOSIS: The differential diagnosis for the patient's cough and body aches included but was not limited to pneumonia, viral syndrome, meningitis, and sepsis. MEDICAL DECISION MAKING: The patient is a 62 y/o female with a history of a TBI and costochondritis complaining of a cough and body aches for 3 weeks. She has been diagnosed with "influenza, walking pneumonia and bronchitis". She has been prescribed Tamiflu, an albuterol inhaler, Prednisone, and doxycycline which has not improved her symptoms. She has also had numerous normal chest x-rays. She returned to the ER today as she continues to not feel well, has body aches, a cough, and rib pain from the cough. She has an unremarkable physical exam. Laboratory and imaging studies are not indicated. I have prescribed her [place] and Hycodan elixir for the cough. Return precautions provided; patient is comfortable with this plan. - Data Points Medications Given: Discontinued Medications Hydrocodone Bitart/Acetaminophen ([place] 5/325mg Prepack#6) 1 btl TAKEHOME EDNOW ONE Stop: 05/23/18 22:18 Last Admin: 05/23/18 22:26 Dose: 1 btl Departure - Departure Disposition: Home, Routine, Self-Care Clinical Impression: Cough Condition: Good Instructions: Hydrocodone/Acetaminophen (By mouth), Acute Cough (ED) Additional Instructions: 1. Take the Hycodan elixir as prescribed for your cough. 2. Use ibuprofen and Tylenol as needed for fever and body aches. 3. Follow up with your primary care physician within 72 hours for reevaluation. 4. Drink plenty of fluids. 5. Return to the emergency department immediately for high fever, severe headache or neck pain, difficulty breathing, abdominal pain, rash or other worsening of condition. Referrals: Claudia Keyes MD [Primary Care Provider] - As per Instructions Prescriptions: HYDROcodone/HOMATROPINE HYCODA [Hycodan Syrup (RX)] 1 tsp PO Q4-6PRN PRN #120 ml PRN Reason: Cough, Moderate Report Scribed for: Alan Concepcion Report Scribed by: Pricila Rodriguez Date of Report: 05/23/18 Time of Report: 22:27
[2018-05-23] MEDS ORDERED: HYDROCOD/APAP 5/325 PREPACK#6 BTL TAKEHOME ONE (22:17)
[2018-05-23 22:28] VITALS: BP 141/71
== END 2018-05-23 22:32 | disposition home or self-care (01) ==
DX: R05 Cough (principal); Z87.01 Personal history of pneumonia (recurrent)

== ENCOUNTER 2018-05-27 07:26 | Emergency (ER) | payer MEDICAID ==
[2018-05-27 07:36] VITALS: BP 130/91
--- NOTE | 2018-05-27 07:59 | EDPHY ---
H & P Stated Complaint: coughing, had bloody sputum this morning Time Seen by Provider: 05/27/18 07:48 HPI/ROS: CHIEF COMPLAINT: Blood in sputum HISTORY OF PRESENT ILLNESS: 62-year-old female with von Willebrand's disease presents with blood in sputum. Onset URI symptoms 3 weeks ago, no fever. She was seen in urgent care and diagnosed with influenza and pneumonia. Chest x- ray was unremarkable. She did not have a flu swab. She was placed on Tamiflu and doxycycline and completed a course of these medications. She continued to have a productive cough. Follow-up chest x-ray on 05/16/2018 was unremarkable, without infiltrate. She now is feeling much better and still has an occasional cough. This morning she coughed up a small amount of pink tinged sputum. She was concerned about worsening pneumonia, so came to the emergency department. No other episodes of hemoptysis and no shortness of breath. REVIEW OF SYSTEMS: complete 10 point ROS reviewed and is negative except for the noted elements in the HPI - Personal History Current Tetanus/Diphtheria Vaccine: Unsure Current Tetanus Diphtheria and Acellular Pertussis (TDAP): Unsure - Medical/Surgical History Hx Asthma: No Hx Chronic Respiratory Disease: No Hx Diabetes: No Hx Cardiac Disease: No Hx Renal Disease: No Hx Cirrhosis: No Hx Alcoholism: No Hx HIV/AIDS: No Hx Splenectomy or Spleen Trauma: No Other PMH: PMH:hypothyroid, vonwildabrands, TBI, ptsd. PSH:overian cyst removan , dental - Social History Smoking Status: Never smoked - Physical Exam Exam: General Appearance: Alert, pleasant Eyes: Pupils equal and round, no conjunctival pallor ENT, Mouth: Mucous membranes moist Neck: Normal inspection Respiratory: Lungs are clear to auscultation, no wheezing Cardiovascular: Regular rate and rhythm Gastrointestinal: Abdomen is soft and nontender Neurological: A&O, nonfocal, normal gait Skin: Warm and dry Extremities: Normal inspection Psychiatric: Mood and affect normal Constitutional: Initial Vital Signs Temperature (C) 36.8 C 05/27/18 07:33 Heart Rate 95 05/27/18 07:33 Respiratory Rate 16 05/27/18 07:33 Blood Pressure 130/91 H 05/27/18 07:33 O2 Sat (%) 96 05/27/18 07:33 O2 Delivery Mode Room Air Allergies/Adverse Reactions: Penicillins Allergy (Intermediate, Verified 05/23/18 21:29) Edema of Extremities Sulfa (Sulfonamide Antibiotics) Allergy (Intermediate, Verified 05/23/18 21:29) Itching ciprofloxacin [From Cipro] Allergy (Verified 05/23/18 21:29) erythromycin base Allergy (Verified 05/23/18 21:29) Home Medications: Medication Instructions Recorded Albuterol [Proventil Inhaler HFA 1 - 2 puffs IH Q4H PRN 07/21/16 (*)] Olopatadine HCl [Pataday] 1 drop OP DAILY PRN 07/21/16 Thyroid [[place] Thyroid 60 MG (*)] 60 mg PO DAILY10 07/21/16 HYDROcodone/HOMATROPINE HYCODA 1 tsp PO Q4-6PRN PRN #120 ml 05/23/18 [Hycodan Syrup (RX)] Tessalon Pearles 05/23/18 Medical Decision Making ED Course/Re-evaluation: This patient presents after an episode of very minor hemoptysis. Pt brought in a photo of sputum, slight pinkish discoloration to clear sputum. She declines chest x-ray. Sx c/w acute bronchitis, resolving. Antibiotics/factor replacement/DDAVP are not indicated. Departure - Departure Disposition: Home, Routine, Self-Care Clinical Impression: Cough with hemoptysis Condition: Good Instructions: Acute Bronchitis (ED), Hemoptysis (ED) Additional Instructions: Return for worsening symptoms or any concerns. Referrals: Claudia Keyes MD [Primary Care Provider] - 2-3 days, call for appt. (Call to make an appointment.)
== END 2018-05-27 08:05 | disposition home or self-care (01) ==
DX: R04.2 Hemoptysis (principal)